=== PATIENT | male | born 2000 | race Caucasian/White ===

== ENCOUNTER 2020-07-04 22:10 | Emergency (ER) | payer OTHER ==
[~2020-07-04] VITALS: Ht 190.5 cm; Wt 140.0 kg
[2020-07-05] MEDS ORDERED: HYDR-3965 PO (00:03)
[2020-07-05] MEDS ORDERED: HYDROcodone/acetaminophen 5mg/325mg tablet PO ONE (00:05)
[2020-07-05] MEDS ORDERED: silver sulfadiazine cream 50gm TP ONE (00:15)
[2020-07-05 01:11] VITALS: BP 125/78
== END 2020-07-05 01:13 | disposition home or self-care (01) ==
LOC: ER 22:11
DX: T23.102A Burn of first degree of left hand, unspecified site, initial encounter (principal); T31.0 Burns involving less than 10% of body surface; Z79.899 Other long term (current) drug therapy; X08.8XXA Exposure to other specified smoke, fire and flames, initial encounter; Y93.89 Activity, other specified; Y92.89 Other specified places as the place of occurrence of the external cause; Y99.8 Other external cause status
CPT/HCPCS: 16000; 16020; 99283